=== PATIENT | male | born 2000 | race Caucasian/White ===

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

== ENCOUNTER 2021-04-16 03:29 | Emergency (ER) | payer OTHER ==
[2021-04-16 03:39] VITALS: BP 138/85; PULSE 78; TEMP 98.3; BMI 28.7
[2021-04-16] MEDS ORDERED: ACETAMINOPHEN 500 MG TABLET (FP) PO ONE (03:47)
[2021-04-16] MEDS ORDERED: METHOCARBAMOL 500 MG TABLET PO ONE (03:51)
[2021-04-16] MEDS ORDERED: LIDOCAINE 5% TOPICAL PATCH TP ONE (04:27)
[2021-04-16] MEDS ORDERED: METHOCARBAMOL 500 MG TABLET ONE (04:28)
[2021-04-16] MEDS ORDERED: LIDOCAINE 5% TOPICAL PATCH ONE (04:29)
[2021-04-16] MEDS ORDERED: ACETAMINOPHEN 325 MG TABLET (FP) ONE (04:30)
[2021-04-16] MEDS ORDERED: LIDOCAINE PATCH REMOVAL MC SCH (22:00)
== END 2021-04-16 04:49 | disposition home or self-care (01) ==
LOC: JER 03:29
DX: S43.101A Unspecified dislocation of right acromioclavicular joint, initial encounter (principal)
CPT/HCPCS: 73000-TC-RT-FY; 73030-TC-RT-FY; 99284-25

== ENCOUNTER 2021-05-20 13:29 | Emergency (ER) | payer OTHER ==
[2021-05-20 13:41] VITALS: BMI 30.1
[2021-05-20] MEDS ORDERED: ALBUTEROL SO4 HFA INHALER IH PRN (14:14)
[2021-05-20] MEDS ORDERED: predniSONE 20 MG TABLET (UD) PO ONE (14:14)
[2021-05-20] MEDS ORDERED: ALBUTEROL SO4 HFA INHALER IH ONE (14:15)
[2021-05-20] MEDS ORDERED: predniSONE 20 MG TABLET (UD) ONE (14:16)
[2021-05-20 14:30] VITALS: BP 122/69; PULSE 73; TEMP 98.6
== END 2021-05-20 15:12 | disposition home or self-care (01) ==
LOC: JER 13:29
PROC: 3E0F7GC Introduction of Other Therapeutic Substance into Respiratory Tract, Via Natural or Artificial Opening (ICD-10-PCS; principal; 2021-05-20)
DX: J06.9 Acute upper respiratory infection, unspecified (principal); J45.901 Unspecified asthma with (acute) exacerbation
CPT/HCPCS: 71046-TC-FY; 99284-25; C9803; U0003; U0005